=== PATIENT | male | born 1965 | race Caucasian/White ===

== ENCOUNTER 2020-02-02 06:51 | Outpatient (NON) | payer BC, SELFPAY ==
[2020-02-03 01:50] LABS: SARS-CoV-2 RNA PCR Positive
== END 2020-02-02 06:52 ==
LOC: ANHCOVIDDT 07:20
PROVIDERS: Visit Provider Family Medicine
DX: U07.1 COVID-19 (principal)
CPT/HCPCS: 87635; C9803; U0003

== ENCOUNTER 2021-08-04 00:51 | Day surgery (SDC) | payer BC, SELFPAY ==
[2021-07-23 12:17] VITALS: BMI 26.6
[2021-08-04 06:22] VITALS: BP 121/67; PULSE 72; RESP 18; TEMP 36.3; O2SAT 100
[2021-08-04] MEDS: LACTATED RINGERS 1,000 ML 150 ML IV CONT (06:33)
--- NOTE | 2021-08-04 07:18 | P.PNAN_ITS ---
Anes - Initial Pre Proc Eval Procedure: Operation Date: 08/04/21 07:30 Proposed Procedures p Screening Colonoscopy - Ole Cummins MD Date/Time: 08/04/21 07:18 Surgeon: Ole Cummins MD Pre Op Diagnosis: neoplasm screening Patient Data Age: 55 Gender: M Height: 1.7 m Weight: 75.6 kg Last Vital Signs Temp 97.4 F L 08/04/21 06:22 Pulse 72 08/04/21 06:22 Resp 18 08/04/21 06:22 BP 121/67 08/04/21 06:22 Pulse Ox 100 08/04/21 06:22 Allergies Allergy/AdvReac Type Severity Reaction Status Date / Time Poultry AdvReac Unknown Other Verified 08/04/21 06:21 Home Medications Medication Instructions Recorded Confirmed Type olopatadine 0.1 % eye drops 1 drp EACH EYE BID #5 ml 06/02/21 07/23/21 Rx levothyroxine 50 mcg tablet 50 mcg PO DAILY #90 tablet 08/03/21 Rx Patient hx anesthesia problems: none Family hx anesthesia problems: none Results Review: All pre-operative results and documents have been reviewed as part of the pre-operative evaluation. [facility] Past Medical History Medical History Asthma Bronchitis Chicken pox History of sinus problem Pneumonia Ringing in ear Sleep apnea Surgical History Surgical History H/O Spinal surgery (~1996) Cervical fusion History of tonsillectomy Family History Family History Father , 69 Pancreatic cancer Other Family history of arthritis Family history of pancreatic cancer Social History Social History Social History: Patient drinks 2-3 cups of caffeine daily Smoking status: Never smoker Alcohol intake: current Drinks per week: 3 Alcohol use details: Patient drinks 2-3 alcoholic beverages on the weekends Substance use: never Substance use type: does not use Living arrangements: with family Anes - Eval Final PreProcedure Day of Procedure 08/04/21 07:18 Patient weight: normal Heart: regular rate and rhythm Lungs: clear to auscultation Airway: Mallampati scale class II Neurological: alert and oriented Last oral intake: >/= 8 hours ASA classification: II Emergent: no Anesthetic plan: proceed Anesthesia type and monitoring: general GIVS and standard monitoring Results Review: All pre-operative results and documents have been reviewed as part of the pre-operative evaluation. Informed Consent: The patient's anesthetic plan and its attendant risks and benefits were discussed with the patient/family/POA. Questions were solicited and answers provided to the satisfaction of the patient/family/POA.
--- NOTE | 2021-08-04 07:24 | PM.HPGS ---
History of Present Illness History of Present Illness Consent: Risks, benefits, and alternatives have been discussed and questions answered. Patient agrees to proceed with procedure. Chief complaint: neoplasm screening Narrative: Kartik Bhatia is a 55 year old male here with colon polyps 3 years ago. Review of Systems Constitutional: Constitutional: Denies headache(s) and Denies weakness Eyes: Eyes: Denies blurry vision ENT: Reports Normal hearing present, Denies headache(s) and Denies neck pain Cardiovascular: Cardiovascular: Denies chest pain and Denies dyspnea Respiratory: Respiratory: Denies dyspnea Gastrointestinal: Gastrointestinal: Reports no additional gastrointestinal complaints Genitourinary: Genitourinary: Denies dysuria Musculoskeletal: Musculoskeletal: Denies neck pain Integumentary/Breasts: Skin/Breast: Denies dry skin Neurologic: Reports Normal hearing present, Denies headache(s) and Denies weakness Psychiatric: Psychiatric: Denies anxiety Endocrine: Endocrine: Denies change in body appearance Hematologic/Lymphatic: Hematologic/Lymphatic: Denies easy bleeding Allergic/Immunologic: Allergic/Immunologic: Denies urticaria PMFSH Past Medical History Medical History (Updated 08/04/21 @ 07:25 by Ole Cummins MD) Asthma Bronchitis Chicken pox Colon polyp History of sinus problem Pneumonia Ringing in ear Sleep apnea Surgical History Surgical History H/O Spinal surgery (~1996) Cervical fusion History of tonsillectomy Family History Family History Father , 69 Pancreatic cancer Other Family history of arthritis Family history of pancreatic cancer Social History Social History Social History: Patient drinks 2-3 cups of caffeine daily Smoking status: Never smoker Alcohol intake: current Drinks per week: 3 Alcohol use details: Patient drinks 2-3 alcoholic beverages on the weekends Substance use: never Substance use type: does not use Living arrangements: with family Meds Home Medications and Allergies Home Medications Medication Instructions Recorded Confirmed Type olopatadine 0.1 % eye drops 1 drp EACH EYE BID #5 ml 06/02/21 07/23/21 Rx levothyroxine 50 mcg tablet 50 mcg PO DAILY #90 tablet 08/03/21 Rx Allergies Allergy/AdvReac Type Severity Reaction Status Date / Time Poultry AdvReac Unknown Other Verified 08/04/21 06:21 Vital Signs Vital Signs - 24 hr 08/04/21 06:22 Temperature 97.4 F L Pulse Rate 72 Respiratory Rate 18 Blood Pressure 121/67 Pulse Oximetry 100 Exam Const: General: comfortable and no acute distress HENMT: General nose exam: Normal nares present Eyes: General: appearance normal, both eyes and all related structures Neck: Neck: no JVD Resp: Auscultation: clear to auscultation bilaterally Cardio: Rate: regular rate Rhythm: regular rhythm GI: Inspection: non-distended GI Palp: Yes Soft to palpation Skin: General skin exam: normal color Neuro: General: gait normal Speech: normal speech Extrem: General: normal to inspection Psych: Mental Status: mental status grossly normal Assessment and Plan Assessment and plan (1) Colon polyp: Code(s): K63.5 - Polyp of colon Status: Acute Assessment and Plan: colonoscopy
[2021-08-04 07:42] VITALS: BP 103/67; PULSE 61; RESP 29; O2SAT 97
[2021-08-04 07:52] VITALS: BP 103/68; PULSE 52; RESP 22; O2SAT 100
[2021-08-04 08:02] VITALS: BP 111/74; PULSE 58; RESP 22; O2SAT 100
== END 2021-08-04 08:10 | disposition home or self-care (01) ==
PROVIDERS: PCP Emergency Medicine; Visit Provider Internal Medicine Gastroenterology
PROC: 0DJD8ZZ Inspection of Lower Intestinal Tract, Via Natural or Artificial Opening Endoscopic (ICD-10-PCS; CPT 45378; principal; 2021-08-04 07:30)
DX: Z12.11 Encounter for screening for malignant neoplasm of colon (principal); K64.8 Other hemorrhoids; Z98.1 Arthrodesis status
CPT/HCPCS: 45378; J2704; J7120

== ENCOUNTER → 2021-08-06 12:34 | Outpatient (CLI) | payer BC, SELFPAY ==
--- NOTE | ~2021-08-06 | US_ITS ---
US thyroid INDICATION: Abnormal blood chemistries. TECHNIQUE: Real-time sonographic images of the thyroid gland were obtained. COMPARISON: No prior studies for comparison. FINDINGS: The right thyroid lobe measures 4.8 x 1.9 x 1.6 cm. The left thyroid lobe measures 4.9 x 1 .8 x 1.2 cm. There is normal echotexture and echogenicity throughout the thyroid gland. No discrete n odules identified. Normal vascular flow is present. IMPRESSION: 1. Normal thyroid without discrete nodule or abnormal vascularity. Reviewed, dictated and finalized at location B.
== END ==
PROVIDERS: PCP Emergency Medicine; Visit Provider Emergency Medicine
DX: R79.89 Other specified abnormal findings of blood chemistry (principal)
CPT/HCPCS: 76536

== ENCOUNTER 2022-08-23 08:10 | Emergency (ER) | payer BC, SELFPAY ==
--- NOTE | ~2022-08-23 | XR_ITS ---
XR finger 3rd RT min 2V DATE: 08/23/2022 09:06 INDICATION: Smashed third finger. Distal pain and swelling. TECHNIQUE: 4 views COMPARISON: None FINDINGS: There is soft tissue swelling of the third digit, especially distally. No radiopaque soft t issue foreign body or subcutaneous emphysema is noted. No fracture or dislocation, periosteal reaction or bone destruction is detected. IMPRESSION: Soft tissue swelling of the third digit; no significant bony abnormality Reviewed, dictated and finalized at location A. IMPRESSION: Soft tissue swelling of the third digit; no significant bony abnorm ality
[2022-08-23 08:48] VITALS: BP 135/74; PULSE 66; RESP 18; TEMP 36.4; O2SAT 100
--- NOTE | 2022-08-23 08:59 | ED.UPPEXIN ---
HPI - Extremity Injury (Upper) General Chief Complaint: Extremity Injury, Upper Stated Complaint: finger injury(rt hand) Time Seen by Provider: 08/23/22 08:41 Source: patient and family Mode of arrival: ambulatory Limitations: no limitations History of Present Illness HPI narrative: 56-year-old male presents to [facility] with complaints of pain, swelling and erythema surrounding noted to right 3rd finger for the past 3-4 days. Patient reports that 1 week ago he is working on his vehicle when he smashed his right 3rd finger. Patient reports that he has had continued pain but then noticed other symptoms noted above 3-4 days ago. Patient denied numbness, tingling, fever, body aches or chills. Patient does report throbbing to the area. MD complaint: injury to: right and finger (There) Onset (ago): week(s) (1) Place: home Exacerbating factors: movement of extremity Associated symptoms: denies other symptoms Related Data Allergies Allergy/AdvReac Type Severity Reaction Status Date / Time Poultry AdvReac Unknown Other Verified 08/23/22 08:51 Review of Systems Constitutional: Constitutional: Denies chills, Denies fatigue, Denies fever(s) and Denies weakness ENT: Denies vertigo, Denies dizziness, Denies epistaxis and Denies nasal congestion Cardiovascular: Cardiovascular: Denies chest pain Respiratory: Respiratory: Denies cough, Denies dyspnea and Denies wheezing Gastrointestinal: Gastrointestinal: Denies diarrhea, Denies nausea and Denies vomiting Musculoskeletal: Comments: Erythema, pain and swelling to distal aspect of right 3rd finger Integumentary/Breasts: Comments: Area of encapsulated purulent drainage surrounding noted to right 3rd finger Neurologic: Denies dizziness, Denies syncope and Denies headache(s) PMFSH Past Medical History Medical History Asthma Bronchitis Chicken pox Colon polyp History of sinus problem Pneumonia Ringing in ear Sleep apnea Surgical History Surgical History H/O Spinal surgery (~1996) Cervical fusion History of tonsillectomy Family History Family History Father , 69 Pancreatic cancer Other Family history of arthritis Family history of pancreatic cancer Social History Social History Social History: Patient drinks 2-3 cups of caffeine daily Smoking status: Never smoker Alcohol intake: current Drinks per week: 3 Alcohol use details: Patient drinks 2-3 alcoholic beverages on the weekends Substance use: never Substance use type: does not use Living arrangements: with family Comments At time of signature, I agree with nursing past medical, surgical, social and family history. There is no relevant family history pertinent to the presenting complaint. Exam Const: General: healthy appearing and no acute distress Nutritional Appearance: well nourished Orientation/consciousness: patient oriented x3 Limitations: no limitations Eyes: Conjunctivae: conjunctivae normal Neck: Neck: normal visual inspection Resp: Effort & Inspection: normal respiratory effort and not labored Auscultation: clear to auscultation bilaterally, no crackles, no rales, no rhonchi and no wheezes Cardio: Rate: regular rate Rhythm: regular rhythm Heart sounds: no murmurs Skin: General skin exam: normal color Rashes: no rashes Other: Area of encapsulated purulent drainage, erythema and swelling noted surrounding nail bed to right 3rd finger representing a paronychia Neuro: General: patient oriented x3 Speech: normal speech Gait exam (Neuro): Normal gait present Extrem: Other: Area of swelling, erythema and pain noted to distal aspect of right 3rd finger Psych: Affect: normal affect Attitude: cooperative Course Course Le
== END 2022-08-23 09:37 | disposition home or self-care (01) ==
PROVIDERS: Emergency Provider Nurse Practitioner Family; PCP Emergency Medicine
DX: L03.011 Cellulitis of right finger (principal); J45.909 Unspecified asthma, uncomplicated
CPT/HCPCS: 10060; 73140; 99213; G0463

== ENCOUNTER 2023-03-18 10:08 | Emergency (ER) | payer BC, SELFPAY ==
--- NOTE | 2023-03-18 10:11 | ED.EYEPROB ---
HPI - Eye Problem General Chief complaint: Eye Problems Stated complaint: Left Eye Irritation Time Seen by Provider: 03/18/23 10:11 Source: patient Mode of arrival: ambulatory Limitations: no limitations History of Present Illness HPI Narrative: Kartik is a 57-year-old male patient presenting to the clinic today with complaints of left eye lower lid irritation x2 weeks. He reports the area is very itchy and irritated. States that it does make his eyes water at sometimes. Denies any visual changes or eye pain. Related Data Allergies Allergy/AdvReac Type Severity Reaction Status Date / Time Poultry AdvReac Intermediate Gastrointestinal Verified 03/18/23 10:14 Upset Review of Systems Review of Systems: Pertinent positives per HPI. Patient denies any fever, chills, rash, headache, visual changes, dizziness, cough, shortness of breath, chest pain, palpitations, nausea, vomiting, diarrhea, constipation, abdominal pain, or any urinary issues. [facility] Past Medical History Medical History Asthma Bronchitis Chicken pox Colon polyp History of sinus problem Pneumonia Ringing in ear Sleep apnea Surgical History Surgical History H/O Spinal surgery (~1996) Cervical fusion History of tonsillectomy Family History Family History Father , 69 Pancreatic cancer Other Family history of arthritis Family history of pancreatic cancer Social History Social History Social History: Patient drinks 2-3 cups of caffeine daily Smoking status: Never smoker Alcohol intake: current Drinks per week: 3 Alcohol use details: Patient drinks 2-3 alcoholic beverages on the weekends Substance use: never Substance use type: does not use Lack of Transportation: No Lack of Food: Never True Current Housing: I Have Housing Concerned About Future Housing: No Difficulty Paying Gas/Electric Bills: No Difficulty Paying for Meds: No Currently Unemployed: No Education: Associate Degree Difficulty w/ Childcare or Family Care: No Living arrangements: with family Comments At the time of my signature, I reviewed and agree with the nursing past medical, surgical, social, and family history. There is no relevant family history pertinent to the patient complaint. Exam Narrative: General: Well-developed, well nourished, in no apparent distress Head: Normocephalic, atraumatic Eyes: Pupils equally round and reactive to light bilaterally, EOM intact, sclera and conjunctive clear, no discharge, left lower lid red/irritated with blistering Ears: TMs intact and clear, ear canals clear, no drainage, grossly hearing normal. Nose: Nares patent, no discharge, no inflammation, no sinus tenderness. Mouth: Oral pharynx without lesions or masses, good dentition, MMM. Neck: Supple, trachea midline, no enlargement of anterior or posterior cervical nodes, no thyroid masses or goiter palpable. Cardio: Regular rate and rhythm, s1 and s2 normal, no murmur appreciated. Resp: Clear to auscultation bilaterally, no rhonchi, rales, wheezing or rubs Course Course Emergency Course: Portions of this record may have been created with voice recognition software. Level of Care: Express Care Visit Vital Signs Vital signs: Vital signs reviewed MDM - Eye Problem MDM Narrative Medical decision making narrative: At the time of visit patient is resting comfortably on the exam table. Patient appears to be nontoxic. I suspect patient has left lower eyelid dermatitis. Prescription for triamcinolone cream was sent to the pharmacy. Supportive measures were discussed with the patient and they voiced understanding discharge instructions and agrees to treatment plan. Return precautions reviewed D
[2023-03-18 10:20] VITALS: BP 122/51; PULSE 73; RESP 16; TEMP 36.5; O2SAT 99
== END 2023-03-18 10:31 | disposition home or self-care (01) ==
PROVIDERS: Emergency Provider Nurse Practitioner Family; PCP Emergency Medicine
DX: L23.9 Allergic contact dermatitis, unspecified cause (principal); J45.909 Unspecified asthma, uncomplicated
CPT/HCPCS: 99213; G0463